=== PATIENT | female | born 1950 ===

== ENCOUNTER 2017-03-09 06:56 | Day surgery (SDC) | payer BC, MEDICARE ==
[2017-02-28 15:50] VITALS: BMI 23.4
[2017-03-09] MEDS ORDERED: Propofol 10 mg/ml Inj (20 ML) ONE (08:06)
[2017-03-09] MEDS ORDERED: Sodium Chloride 0.9% 1,000 ML IV SCH (08:30)
[2017-03-09 08:45] VITALS: TEMP 98
[2017-03-09 09:28] VITALS: BP 117/72; PULSE 62; RESP 18; O2SAT 99
== END 2017-03-09 10:10 | disposition home or self-care (01) ==
LOC: ENDO 06:56
PROVIDERS: ATTEND Internal Medicine Gastroenterology
DX: D12.2 Benign neoplasm of ascending colon (principal); K57.30 Diverticulosis of large intestine without perforation or abscess without bleeding; K64.1 Second degree hemorrhoids; Z12.11 Encounter for screening for malignant neoplasm of colon
CPT/HCPCS: 45380; 45385; 88305; J2001; J2704; J7040 ×2